=== PATIENT | female | born 1980 | race Caucasian/White ===

== ENCOUNTER 2020-06-13 06:11 | Observation (INO) ==
[2020-06-13] MEDS ORDERED: Naloxone 0.4 MG/ML INJ IVP PRN ×2 (09:19→20:52)
[2020-06-13] MEDS ORDERED: Ondansetron 4 MG/2 ML VIAL IVP PRN ×2 (09:19→20:52)
[2020-06-13 11:16] LABS: Adenovirus Not Detected (Not Detect); Bordetella Pertussis Not Detected (Not Detect); Chlamydophila pneumoniae Not Detected (Not Detect); Coronavirus 229E Not Detected (Not Detect); Coronavirus HKU1 Not Detected (Not Detect); Coronavirus NL63 Not Detected (Not Detect); Coronavirus OC43 Not Detected (Not Detect); Human Metapneumovirus Not Detected (Not Detect); Human Rhinovirus/Enterovirus Not Detected (Not Detect); Influenza A Subtype 2009 H1 Not Detected (Not Detect); Influenza B Not Detected (Not Detect); Mycoplasma pneumoniae Not Detected (Not Detect); Parainfluenza Virus 1 Not Detected (Not Detect); Parainfluenza Virus 2 Not Detected (Not Detect); Parainfluenza Virus 3 Not Detected (Not Detect); Parainfluenza Virus 4 Not Detected (Not Detect); Respiratory Syncytial Virus Not Detected (Not Detect); SARS-CoV-2 Not Detected (Not Detect)
[2020-06-13] MEDS: Gabapentin 400 MG CAPSULE PO SCH ×3 (11:48→23:46)
[2020-06-13] MEDS: 0.9 % Sodium Chloride 1,000 ML IVC SCH ×2 (11:49→23:15)
[2020-06-13] MEDS ORDERED: CeFAZolin Syr 2,000MG/20 ML 2,000 MG/20 ML SYRINGE IVPB ONE (19:15)
[2020-06-13] MEDS ORDERED: Ondansetron 4 MG/2 ML VIAL ONE (19:20)
[2020-06-13] MEDS ORDERED: Dexamethasone 4 MG/ML VIAL ONE (19:20)
[2020-06-13] MEDS ORDERED: *HR* Propofol 200 MG/20 ML VIAL IVP ONE (19:20)
[2020-06-13] MEDS ORDERED: *HR* FentaNYL (PF) 100 MCG/2 ML VIAL ONE (19:20)
[2020-06-13] MEDS ORDERED: Lidocaine -MPF 2% 2 ML VIAL ONE (19:20)
[2020-06-13] MEDS ORDERED: Isovue-300 50ML VIAL ONE (19:26)
[2020-06-13] MEDS ORDERED: *HR* OxyCODONE Immed Rel 5 MG TABLET PO STA (20:13)
[2020-06-13] MEDS ORDERED: QUEtiapine Fumarate 100 MG TABLET PO SCH (21:00)
[2020-06-13] MEDS: Nicotine 14 MG PATCH.TD24 TD SCH (23:47)
[2020-06-14] MEDS: 0.9 % Sodium Chloride 1,000 ML IVC SCH ×2 (06:48→07:57)
[2020-06-14] MEDS: Gabapentin 400 MG CAPSULE PO SCH (07:49)
[2020-06-14] MEDS: Nicotine 14 MG PATCH.TD24 TD SCH (07:49)
[2020-06-14] MEDS ORDERED: levoFLOXacin 500 MG/100 ML 500 MG/100 ML BAG IVPB SCH (09:00)
[2020-06-14] MEDS ORDERED: cefTRIAXone 1,000 MG in 0.9 % Sodium Chloride Mini Bag 100 ML IVP SCH (09:00)
[2020-06-14 11:16] VITALS: BP 131/89
== END 2020-06-14 13:49 | disposition home or self-care (01) ==
LOC: 3BNU
PROVIDERS: ADMIT Urology; ATTEND Urology

== ENCOUNTER 2020-07-04 12:01 | Observation (INO) ==
[2020-07-04] MEDS ORDERED: Ondansetron 4 MG/2 ML VIAL IVP PRN (17:58)
[2020-07-04] MEDS ORDERED: Naloxone 0.4 MG/ML INJ IVP PRN (17:58)
[2020-07-04] MEDS ORDERED: Acetaminophen 325 MG TABLET PO PRN (17:58)
[2020-07-04] MEDS: *HR* OxyCODONE Immed Rel 5 MG TABLET PO PRN (18:39)
[2020-07-04] MEDS: *HR* HYDROcodone/Acet 5/325 mg TABLET PO PRN (21:05)
[2020-07-04] MEDS ORDERED: Melatonin 3 MG TABLET PO PRN (21:43)
[2020-07-04] MEDS ORDERED: Sennosides/Docusate Sodium TABLET PO PRN (21:43)
[2020-07-04] MEDS: QUEtiapine Fumarate 100 MG TABLET PO SCH (21:51)
[2020-07-04] MEDS: Gabapentin 400 MG CAPSULE PO SCH (21:52)
[2020-07-04] MEDS: Ringers Solution, Lactated 1,000 ML IVC SCH (22:12)
[2020-07-05] MEDS: *HR* OxyCODONE Immed Rel 5 MG TABLET PO PRN ×3 (01:53→17:24)
[2020-07-05] MEDS: *HR* HYDROcodone/Acet 5/325 mg TABLET PO PRN ×3 (03:48→21:39)
[2020-07-05 06:14] LABS: Alanine Aminotransferase 8 Units/L (7-52); Albumin/Globulin Ratio 0.9 (1.1-2.2); Alkaline Phosphatase 83 Units/L (34-104); Aspartate Amino Transferase 9 Units/L (13-39); BUN/Creatinine Ratio 10 (6-26); Bilirubin,Total 0.3 mg/dL (0.3-1.0); Blood Urea Nitrogen 8 mg/dL (6-20); Calcium 8.2 mg/dL (8.6-10.3); Carbon Dioxide 25 mEq/L (23-29); Chloride 104 mEq/L (98-107); Globulin 3.4 g/dL (2.4-3.5); Glucose 88 mg/dL (70-105); Magnesium 1.7 mg/dL (1.6-2.6); Osmolality,Calculated 282 (280-300); Phosphorous 2.5 mg/dL (2.7-4.5); Potassium 3.4 mEq/L (3.5-5.1); Sodium 137 mEq/L (136-145); Total Protein 6.4 g/dL (6.4-8.9); eGFR For African Americans > 60 (> 60); eGFR For Non-African Americans > 60 (> 60)
[2020-07-05 07:22] LABS: Basophils % 0.4 %; Eosinophils # 0.4 K/mcL (0.0-0.6); Eosinophils % 3.4 %; Hematocrit 36.5 % (35.3-44.9); Hemoglobin 12.3 g/dL (11.5-15.4); Immature Granulocytes % 0.5 % (0-4); Lymphocytes # 2.8 K/mcL (0.6-4.6); Lymphocytes % 26.6 %; Mean Corpuscular HGB Conc 33.7 g/dL (31.6-35.5); Mean Corpuscular Hemoglobin 31.6 pg (28.0-33.3); Mean Corpuscular Volume 93.8 fL (83.0-100.0); Monocytes # 1.3 K/mcL (0.0-1.3); Monocytes % 12.1 %; Platelet Count 227 K/mcL (140-400); Red Blood Count 3.89 M/mcL (3.82-4.97); Red Cell Distribution Width 14.7 % (11.5-14.5); White Blood Count 10.6 K/mcL (4.3-11.1)
[2020-07-05] MEDS: Gabapentin 400 MG CAPSULE PO SCH ×4 (08:40→21:36)
[2020-07-05] MEDS: Nicotine 14 MG PATCH.TD24 TD SCH (08:42)
[2020-07-05] MEDS: cefTRIAXone 1,000 MG in Water for inj. (sterile) 10 ML IVP SCH (08:43)
[2020-07-05] MEDS: Ringers Solution, Lactated 1,000 ML IVC SCH (12:25)
[2020-07-05] MEDS: polyethylene glycoL 3350 17 GM POWD.PACK PO SCH (13:37)
[2020-07-05] MEDS: QUEtiapine Fumarate 100 MG TABLET PO SCH (21:38)
[2020-07-06 04:08] LABS: Hematocrit 34.5 % (35.3-44.9); Hemoglobin 11.8 g/dL (11.5-15.4); Mean Corpuscular HGB Conc 34.2 g/dL (31.6-35.5); Mean Corpuscular Hemoglobin 32.8 pg (28.0-33.3); Mean Corpuscular Volume 95.8 fL (83.0-100.0); Platelet Count 251 K/mcL (140-400); Red Cell Distribution Width 14.7 % (11.5-14.5)
[2020-07-06 04:27] LABS: BUN/Creatinine Ratio 12 (6-26); Blood Urea Nitrogen 9 mg/dL (6-20); Calcium 8.3 mg/dL (8.6-10.3); Carbon Dioxide 26 mEq/L (23-29); Chloride 106 mEq/L (98-107); Glucose 119 mg/dL (70-105); Osmolality,Calculated 288 (280-300); Potassium 3.2 mEq/L (3.5-5.1); Sodium 139 mEq/L (136-145); eGFR For African Americans > 60 (> 60); eGFR For Non-African Americans > 60 (> 60)
[2020-07-06] MEDS: polyethylene glycoL 3350 17 GM POWD.PACK PO SCH (07:37)
[2020-07-06] MEDS: Nicotine 14 MG PATCH.TD24 TD SCH (07:48)
[2020-07-06] MEDS: Gabapentin 400 MG CAPSULE PO SCH ×2 (07:48→11:41)
[2020-07-06] MEDS: cefTRIAXone 1,000 MG in Water for inj. (sterile) 10 ML IVP SCH (07:49)
[2020-07-06] MEDS: *HR* OxyCODONE Immed Rel 5 MG TABLET PO PRN ×2 (07:51→15:27)
[2020-07-06] MEDS ORDERED: Potassium Phosphate 44 MEQ in 0.9 % Sodium Chloride 250 ML IVPB ONE (08:01)
[2020-07-06] MEDS ORDERED: Fluconazole 150 MG TABLET PO ONE (09:27)
[2020-07-06] MEDS ORDERED: Lidocaine -MPF 2% 2 ML VIAL ONE (14:01)
[2020-07-06] MEDS ORDERED: *HR* FentaNYL (PF) 100 MCG/2 ML VIAL ONE (14:01)
[2020-07-06] MEDS ORDERED: *HR* Midazolam HCl 2 MG/2 ML VIAL ONE (14:01)
[2020-07-06] MEDS ORDERED: *HR* Propofol 200 MG/20 ML VIAL IVP ONE (14:01)
[2020-07-06] MEDS ORDERED: Ondansetron 4 MG/2 ML VIAL ONE (14:03)
[2020-07-06] MEDS ORDERED: Dexamethasone 4 MG/ML VIAL ONE (14:50)
[2020-07-06] MEDS ORDERED: Ondansetron 4 MG/2 ML VIAL IVP PRN (15:59)
[2020-07-06] MEDS ORDERED: *HR* HYDROcodone/Acet 5/325 mg TABLET PO PRN (15:59)
[2020-07-06] MEDS ORDERED: Melatonin 3 MG TABLET PO PRN (15:59)
[2020-07-06] MEDS ORDERED: Naloxone 0.4 MG/ML INJ IVP PRN (15:59)
[2020-07-06] MEDS ORDERED: Acetaminophen 325 MG TABLET PO PRN (15:59)
[2020-07-06] MEDS ORDERED: Sennosides/Docusate Sodium TABLET PO PRN (15:59)
[2020-07-06] MEDS ORDERED: *HR* OxyCODONE Immed Rel 5 MG TABLET PO PRN (15:59)
[2020-07-06] MEDS ORDERED: Gabapentin 400 MG CAPSULE PO SCH (17:00)
[2020-07-06 17:30] VITALS: BP 132/88
[2020-07-06] MEDS ORDERED: QUEtiapine Fumarate 100 MG TABLET PO SCH (21:00)
[2020-07-07] MEDS ORDERED: polyethylene glycoL 3350 17 GM POWD.PACK PO SCH (09:00)
[2020-07-07] MEDS ORDERED: Nicotine 14 MG PATCH.TD24 TD SCH (09:00)
[2020-07-07] MEDS ORDERED: cefTRIAXone 1,000 MG in Water for inj. (sterile) 10 ML IVP SCH (09:00)
== END 2020-07-06 18:30 | disposition home or self-care (01) ==
LOC: 3ANU → SUATTDRO 16:09
PROVIDERS: ADMIT Internal Medicine; ATTEND Internal Medicine